=== PATIENT | female | born 1935 | race Caucasian/White ===

== ENCOUNTER 2019-04-22 09:32 | Outpatient (CLI) | payer MEDICARE | END 2019-04-22 23:59 | disposition home or self-care (01) | LOC: CVU 09:32 | PROVIDERS: ATTEND Nurse Practitioner Family | DX: I08.8 Other rheumatic multiple valve diseases (principal); I12.9 Hypertensive chronic kidney disease with stage 1 through stage 4 chronic kidney disease, or unspecified chronic kidney disease; N18.3 Chronic kidney disease, stage 3 (moderate); I87.2 Venous insufficiency (chronic) (peripheral); Z87.891 Personal history of nicotine dependence; Z85.3 Personal history of malignant neoplasm of breast; Z85.038 Personal history of other malignant neoplasm of large intestine; Z92.3 Personal history of irradiation | CPT/HCPCS: 0399T; 93306 ==

== ENCOUNTER 2020-02-19 16:45 | Emergency (ER) | payer MEDICARE ==
[~2020-02-19] VITALS: Ht 167.6 cm; Wt 106.1 kg
[2020-02-19] MEDS ORDERED: KETOROLAC 30 MG/1 ML ONE (17:45)
--- NOTE | 2020-02-19 17:47 | NUR ---
CALL TO RAD REGARDING XR BEING MARKED COMPLETE AND NOT APPEARING IN EMR.
[2020-02-19] MEDS ORDERED: KETOROLAC 30 MG/1 ML IM ONE (18:00)
--- NOTE | 2020-02-19 18:23 | NUR ---
PT TO CT.
--- NOTE | 2020-02-19 18:55 | NUR ---
ALL TESTS RESULTED. PT IS UP FOR RECHECK AT THIS TIME.
--- NOTE | 2020-02-19 19:02 | NUR ---
REPORT GIVEN TO MICHAEL NAVARRO. PT RESTING ON WHEELCHAIR W/ CALL LIGHT IN REACH AND FAMILY AT BEDSIDE. RESP EVEN AND UNLABORED, MAMTA.
[2020-02-19 19:18] VITALS: BP 155/75
--- NOTE | 2020-02-19 19:18 | NUR ---
pt sitting up in chair, states feeling "loads better" awaiting ct read by erp.
== END 2020-02-19 20:32 ==
LOC: ED 20:00
DX: S39.012A Strain of muscle, fascia and tendon of lower back, initial encounter (principal); R51.9 Headache, unspecified; I10 Essential (primary) hypertension; W01.0XXA Fall on same level from slipping, tripping and stumbling without subsequent striking against object, initial encounter; Y93.89 Activity, other specified; Y92.009 Unspecified place in unspecified non-institutional (private) residence as the place of occurrence of the external cause; Y99.8 Other external cause status
CPT/HCPCS: 72110; 72192; 72220; 96372; 99284; J1885